=== PATIENT | male | born 1970 | race Two or more races ===

== ENCOUNTER 2021-12-09 07:42 | Outpatient (CLI) | payer OTHER | END 2021-12-09 07:49 | disposition home or self-care (01) | LOC: LAB 07:42 | DX: I11.9 Hypertensive heart disease without heart failure (principal); E11.21 Type 2 diabetes mellitus with diabetic nephropathy; N40.0 Benign prostatic hyperplasia without lower urinary tract symptoms; Z12.11 Encounter for screening for malignant neoplasm of colon; R10.84 Generalized abdominal pain ==

== ENCOUNTER 2021-12-15 07:40 | Outpatient (CLI) | payer OTHER | END 2021-12-15 07:47 | disposition home or self-care (01) | LOC: SONOGRAMA 07:40 | PROVIDERS: ATTEND General Practice | DX: N20.1 Calculus of ureter (principal) ==

== ENCOUNTER 2021-12-26 08:58 | Outpatient (CLI) | payer OTHER | END 2021-12-26 14:01 | disposition home or self-care (01) | LOC: TOM 08:58 | PROVIDERS: ATTEND Surgery | DX: R10.9 Unspecified abdominal pain (principal) ==

== ENCOUNTER 2022-03-08 08:41 | Outpatient (CLI) | payer OTHER | END 2022-03-08 08:42 | disposition home or self-care (01) | LOC: LAB 08:41 | PROVIDERS: ATTEND Internal Medicine Gastroenterology | DX: R10.31 Right lower quadrant pain (principal); K57.30 Diverticulosis of large intestine without perforation or abscess without bleeding; R74.01 Elevation of levels of liver transaminase levels ==

== ENCOUNTER 2022-03-18 08:13 | Outpatient (CLI) | payer OTHER | END 2022-03-18 08:15 | disposition home or self-care (01) | LOC: LAB 08:13 | PROVIDERS: ATTEND Internal Medicine Gastroenterology | DX: Z11.52 Encounter for screening for COVID-19 (principal); Z20.822 Contact with and (suspected) exposure to COVID-19; Z20.828 Contact with and (suspected) exposure to other viral communicable diseases ==

== ENCOUNTER 2022-12-01 12:12 | Outpatient (CLI) | payer OTHER | END 2022-12-01 12:25 | disposition home or self-care (01) | LOC: MRI 12:12 | DX: M51.26 Other intervertebral disc displacement, lumbar region (principal) | CPT/HCPCS: 72148 ==

== ENCOUNTER 2023-01-02 07:35 | Emergency (ER) | payer OTHER ==
[~2023-01-02] VITALS: Ht 162.6 cm; Wt 66.7 kg
[2023-01-02] MEDS ORDERED: CYCLOBENZAPRINE10 MG PO (09:00)
[2023-01-02] MEDS ORDERED: CELEBREX100 MG PO (09:00)
== END 2023-01-02 09:02 | disposition home or self-care (01) ==
LOC: ER 07:35
DX: M54.50 Low back pain, unspecified (principal)

== ENCOUNTER 2023-03-02 07:18 | Outpatient (CLI) | payer OTHER ==
[~2023-03-02 07:18] MED LIST: CELEBREX100 MG PO; CYCLOBENZAPRINE10 MG PO
== END 2023-03-02 07:24 | disposition home or self-care (01) ==
LOC: LAB 07:18
PROVIDERS: ATTEND Internal Medicine
DX: Z01.810 Encounter for preprocedural cardiovascular examination (principal); I10 Essential (primary) hypertension; E03.9 Hypothyroidism, unspecified; E78.9 Disorder of lipoprotein metabolism, unspecified; E55.9 Vitamin D deficiency, unspecified; E11.51 Type 2 diabetes mellitus with diabetic peripheral angiopathy without gangrene; E66.8 Other obesity; G62.9 Polyneuropathy, unspecified; Z12.11 Encounter for screening for malignant neoplasm of colon

== ENCOUNTER 2023-03-09 09:49 | Outpatient (CLI) | payer OTHER | END 2023-03-09 10:02 | disposition home or self-care (01) | LOC: TOM 09:49 | PROVIDERS: ATTEND Internal Medicine Gastroenterology | DX: R10.31 Right lower quadrant pain (principal) ==

== ENCOUNTER 2023-03-17 10:00 | Outpatient (CLI) | payer OTHER | END 2023-03-17 10:05 | disposition home or self-care (01) | LOC: LAB 10:00 | PROVIDERS: ATTEND Internal Medicine Gastroenterology | DX: Z11.52 Encounter for screening for COVID-19 (principal); Z20.822 Contact with and (suspected) exposure to COVID-19; Z20.828 Contact with and (suspected) exposure to other viral communicable diseases ==

== ENCOUNTER 2023-07-19 06:53 | Outpatient (CLI) | payer OTHER | END 2023-07-19 06:54 | disposition home or self-care (01) | LOC: LAB 06:53 | PROVIDERS: ATTEND Internal Medicine Gastroenterology | DX: I10 Essential (primary) hypertension (principal); E78.9 Disorder of lipoprotein metabolism, unspecified; R10.13 Epigastric pain; K31.84 Gastroparesis; K21.9 Gastro-esophageal reflux disease without esophagitis ==

== ENCOUNTER 2023-08-04 09:57 | Outpatient (CLI) | payer OTHER | END 2023-08-04 10:01 | disposition home or self-care (01) | LOC: LAB 09:57 | PROVIDERS: ATTEND Internal Medicine Gastroenterology | DX: J20.9 Acute bronchitis, unspecified (principal); R05.9 Cough, unspecified; R06.02 Shortness of breath; I10 Essential (primary) hypertension; E78.9 Disorder of lipoprotein metabolism, unspecified; K31.84 Gastroparesis; R10.13 Epigastric pain; B96.81 Helicobacter pylori [H. pylori] as the cause of diseases classified elsewhere ==

== ENCOUNTER 2023-09-10 07:56 | Outpatient (CLI) | payer OTHER | END 2023-09-10 08:20 | disposition home or self-care (01) | LOC: MRI 07:56 | PROVIDERS: ATTEND Physical Medicine & Rehabilitation | DX: R10.31 Right lower quadrant pain (principal) | CPT/HCPCS: 72195 ==

== ENCOUNTER → 2024-01-11 07:51 | Outpatient (CLI) | payer OTHER ==
[2024-01-11 08:36] LABS: PH,URINE 5.5 (5.0-8.0); URINE APPEARANCE Clear; URINE BILIRRUBIN Negative (NEGATIVE); URINE BLOOD Negative; URINE COLOR Yellow; URINE GLUCOSE Negative (NEGATIVE); URINE LEUKOCYTE Negative; URINE NITRATE Negative; URINE PROTEIN Negative (NEGATIVE)
[2024-01-11 08:40] LABS: URINE BACTERIA 16.3 uL (0.0-1933); URINE RBC 3.7 uL (0.0-20.8); URINE WBC 4.3 uL (0.0-23.2)
[2024-01-11 08:44] LABS: HEMOGLOBIN 14.4 g/dL (13-16.00); MEAN CELL VOLUME 89.7 fL (80.0-100.00); MEAN CORPUSCULAR HEMOGLOBIN 32.4 pg (27.00-32.0); MEAN CORPUSCULAR HGB CONC 36.1 g/dl (32.0-36.0); PLATELET COUNT 149 K/uL (150-450); RED BLOOD COUNT 4.46 M/uL (4.00-6.00); RED CELL DISTRIBUTION WIDTH 12.9 % (11.5-14.5)
[2024-01-11 08:49] LABS: URINE EPITHELIAL CELLS 1.2 uL (0.0-38.8)
[2024-01-11 09:13] LABS: BILIRUBIN TOTAL 0.74 mg/dL (0.3-1.2); CALCIUM 9.1 mg/dL (8.5-10.1); CHOL HDL RATIO 3.5 (0-5.0); CREATININE SERUM 0.67 mg/dL (0.70-1.30); GFR 124.56; GLOBULINA 3.1 G/DL (2.4-3.5); POTASSIUM 4.27 mEq/L (3.5-5.1); TOTAL PROTEIN 7.1 gm/dL (6.4-8.2)
== END | disposition home or self-care (01) ==
LOC: LAB 07:51
PROVIDERS: ATTEND Internal Medicine
DX: K31.84 Gastroparesis (principal); I10 Essential (primary) hypertension; E78.9 Disorder of lipoprotein metabolism, unspecified; R10.13 Epigastric pain; B96.81 Helicobacter pylori [H. pylori] as the cause of diseases classified elsewhere